=== PATIENT | male | born 1960 | race Caucasian/White ===

== ENCOUNTER → 2020-08-28 | Outpatient (CLI) | payer BC ==
[~2020-08-28] MED LIST: CELE200C PO
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
== END | disposition home or self-care (01) ==
LOC: PNCL 10:05
PROVIDERS: ATTEND Anesthesiology
DX: R10.32 Left lower quadrant pain (principal); M19.90 Unspecified osteoarthritis, unspecified site; K21.9 Gastro-esophageal reflux disease without esophagitis; E66.9 Obesity, unspecified; Z87.891 Personal history of nicotine dependence; Z79.899 Other long term (current) drug therapy; Z98.890 Other specified postprocedural states; Z82.49 Family history of ischemic heart disease and other diseases of the circulatory system
CPT/HCPCS: G0463

== ENCOUNTER → 2020-09-29 | Outpatient (CLI) | payer BC ==
[~2020-09-29] MED LIST changes: +BUPIVACAINE MPF 0.5% 30 ML VIAL. ONE; +methylPREDNISolone ACETATE 40 MG/ML VIAL. ONE
--- NOTE | 2020-09-29 10:51 | PDOC ---
Progress Note - Pain Clinic Date of Service: DOS: DATE: 09/29/20 TIME: 10:45 Diagnosis: Dx: Left lower quadrant abdominal pain History or Present Illness: HPI: 60-year-old male returns for follow-up status post initial evaluation and preauthorization for left transversus abdominis plane block. Patient is obtained permission I would like to pursue this patient still significant pain in left lower quadrant radiating medially and inferiorly into the anterior upper thigh as well at times patient reports is worse with walking standing changing positions sitting for prolonged periods it wakes her from sleep at least once every 6 hours patient reports toward 9 on scale 10 is worse over the past week 9 on average 9 its least is a 9 today patient comes aching constant in the left lo wer quadrant radiating as described. Patient reports no new motor or sensory deficits no new bowel or bladder incontinence. Physical Exam: VS: Blood pressure is 136/80 pulse 103 respirations 18 temperature 90.1 F height is 5 feet 6 inches weight 232 pounds PE: PHYSICAL EXAMINATION: GENERAL: The patient is awake, alert, oriented, appropriate, pleasant in demeanor. HEENT: Shows normocephalic, atraumatic. Extraocular movements are intact and symmetrical. Oral cavity: Mucous membranes moist and pink. NECK: Shows anterior throat supple without palpable lymphadenopathy noted. S wallow reflex symmetrical. CHEST: Shows normal on inspection. Breath sounds are clear bilaterally. HEART: Shows S1, S2 clear. No murmurs auscultated. ABDOMEN: Soft, nontender, nondistended, obese. No palpable organomegaly is noted. No rebound or guarding demonstrated. Patient shows tenderness with palpation of the left lower quadrant superior and medial to the lateral iliac sp ine without specific radiation but with tenderness on palpation no palpable masses once again no discoloration no rashes or abnormalities of the skin. Right side shows nontender and is symmetrical in appearance. SKIN: Shows warm and dry, good turgor. No edema. No sores, rashes or bruising throughout. Procedure: Procedure: Options were discussed with the patient. Patient chart reviews his current medication regimen updated current review of systems updated today as well. We will proceed with a left-sided transversus abdominis plane block. Risk were discussed including but not limited to bleeding infection possibility of intravascular injection sequelae spread of local anesthetic and numbness side effects steroid medication as well as poor results regarding pain control. Patient understands wished to proceed. Patient will return to the clinic in approximately 4weeks as scheduled. Medication Injected: Med Injected: Patient in right lateral decubitus position under sterile prep and drape using 25-gauge needle and control syringe transversus abdominis plane block was performed with good pop through the lateral abdominal musculature layers negative aspiration was confirmed and total of 10 cc 0.5% bupivacaine and total of 40 mg Depo-Medrol was injected in a fanlike field block fashion. Needle was removed and sterile bandage was applied. Patient tolerated the procedure well and had no complications. Condition at Discharge: Condition at Discharge: Condition at discharge is stable, patient already procedure well and had no complications. HELENE MAURER MD Sep 29, 2020 10:51
--- NOTE | 2020-09-29 10:52 | PDOC4 ---
Procedure Note: Procedure Note: Patient was consented for left transversus abdominis plane block. Risk were discussed including but not limited to bleeding infection possibility of intravascular injection and sequelae spread of local anesthetic and numbness side effects steroid medication and portals regarding pain control. Patient understands wishes to proceed. Patient in right lateral decubitus position under sterile prep and drape using 25-gauge needle and control syringe transversus abdominis plane block was performed with good pop through the lateral abdominal musculature layers negative aspiration was confirmed and total of 10 cc 0.5% bupivacaine and total of 40 mg Depo-Medrol was injected in a fanlike field block fashion. Needle was removed and sterile bandage was applied. Patient tolerated the procedure well and had no complications. HELENE MAURER MD Sep 29, 2020 10:52
== END | disposition home or self-care (01) ==
LOC: PNCL 10:01
PROVIDERS: ATTEND Anesthesiology
DX: R10.32 Left lower quadrant pain (principal); Z79.899 Other long term (current) drug therapy
CPT/HCPCS: 64486; J1030; J3490

== ENCOUNTER → 2021-03-30 | Outpatient (CLI) | payer BC ==
[~2021-03-30] MED LIST changes: -BUPIVACAINE MPF 0.5% 30 ML VIAL. ONE; -methylPREDNISolone ACETATE 40 MG/ML VIAL. ONE
--- NOTE | 2021-03-30 12:34 | KCIC ---
CT HEAD INDICATION: Reason: NEW ONSET SEIZURE / Spl. Instructions: / History: Pt. had seizure 03/28/21. New dx . hypertension 4 months ago. COMPARISON: None Available. Exposure: One or more of the following individualized dose reduction techniques were utilized for thi s examination: 1. Automated exposure control 2. Adjustment of the mA and/or kV according to patient size 3. Use of iterative reconstruction technique TECHNIQUE: 5 mm contiguous axial images were obtained from the skull base to the vertex in both bone and soft tissue algorithm. FINDINGS: No abnormal attenuation within the brain parenchyma. No evidence of acute intracranial hemorrhage. No extra-axial fluid collections. No mass effect or midline shift. Ventricular size is appropriate. Basal cisterns are patent. No fractures identified.Walters-white differentiation is preserved.Globes and orbits are within normal l imits. Paranasal sinuses and mastoid air cells are clear. IMPRESSION: No acute intracranial findings Electronically signed by: Nishant Mason MD (03/30/2021 12:32 PM) [id number]
--- NOTE | 2021-04-01 21:40 | PN ---
DATE: 04/01/2021 DAILY PROGRESS NOTE LOCATION: He is in room 414. SUBJECTIVE: This 60-year-old male remains hospitalized with left leg wound, status post debridement x 2 with ongoing wound VAC therapy, ongoing antibiotics, failure to thrive at home and being unable to get around on his own. He has been recurrently anemic, receiving transfusion and his hemoglobin is down to 6.8 this morning and will receive another transfusion. He was seen stools were heme-positive and GI has been consulted once again. We were unable to stop his warfarin with his INR at 2.7 this morning due to the fact that he has a prosthetic mitral valve. OBJECTIVE: VITAL SIGNS: Stable. He is afebrile. GENERAL: He is awake, alert. CHEST: Clear to auscultation. HEART: Regular rate and rhythm. ABDOMEN: Soft, nontender, without hepatosplenomegaly or mass. EXTREMITIES: With wound VAC in place. Therapy is ongoing. LABORATORY DATA: Sugars remain decent. Platelet count was 63,000 this morning. ASSESSMENT: 1. Left leg wounds. 2. Diabetes with good control. 3. Prosthetic mitral valve, on warfarin. 4. Weakness, inability to self care. 5. Diabetes, good control. 6. Recurrent anemia with heme-positive stools. 7. Thrombocytopenia. PLAN: Continue wound care, oral antibiotics, intensive therapy. GI evaluation. RADHA DR: MARIELY/hung TID: [id number]
== END ==
LOC: KCIC CT 10:46
PROVIDERS: ATTEND Family Medicine
DX: S81.802A Unspecified open wound, left lower leg, initial encounter (principal); R56.9 Unspecified convulsions; R53.1 Weakness; D69.6 Thrombocytopenia, unspecified; D64.89 Other specified anemias; X58.XXXA Exposure to other specified factors, initial encounter; Y93.89 Activity, other specified; Y92.89 Other specified places as the place of occurrence of the external cause; Y99.8 Other external cause status
CPT/HCPCS: 70450